=== PATIENT | female | born 1990 | race Caucasian/White ===

== ENCOUNTER → 2016-10-09 | Outpatient (REF) | payer BC, OTHER | LOC: M LAB REF 16:57 | PROVIDERS: ATTEND Obstetrics & Gynecology | DX: Z34.03 Encounter for supervision of normal first pregnancy, third trimester (principal) ==

== ENCOUNTER 2016-11-01 06:37 | Inpatient (IN) | payer BC, OTHER ==
[~2016-11-01] VITALS: Ht 162.6 cm; Wt 69.0 kg
[2016-11-01] VITALS (9 sets, daily range): BP systolic 115–144; BP diastolic 59–94
[2016-11-01] MEDS ORDERED: LACTATED RINGER'S 1000 ML IV STA (07:52)
[2016-11-01] MEDS ORDERED: ONETAB35 PO (07:57)
[2016-11-01] MEDS ORDERED: PROMETHAZINE INJ 25 MG/ML VIAL (J2550) IV PRN (08:00)
[2016-11-01] MEDS ORDERED: BUTORPHANOL 2 MG/ML INJ (J0595) IV PRN (08:00)
--- NOTE | 2016-11-01 08:16 | HPE ---
DATE OF ADMISSION: 11/01/2016 26-year-old 1, estimated date of delivery 11/06/2016 presents at 39 weeks 2 days with reports of uterine contractions since of 0300 followed by spontaneous rupture of membranes, clear fluid at 0548. Reports active movement. Last normal menstrual period 01/31/2016 for JU of 11/06/2016. Declined first trimester sonogram. Anatomy scan within normal limits, confirmed the date of 10/24/2016. Appropriate care. No known drug allergies. Medical-surgical noncontributory. Family is noncontributory. SOCIAL HISTORY: . Father of the baby present and supportive. Denies tobacco, alcohol or drugs. OBJECTIVE: Prepregnancy weight 115, total weight gain 38 pounds. A+, antibody negative, rubella immune, VDRL, Hep B, Hep C, HIV, gonorrhea and Chlamydia all negative. Declined genetic screening. 1-hour glucose 134. 3-hour was normal 82, 115, 122 and 88. Group B strep is negative. Vital signs are stable. Heart rate is regular. She is breathing with contractions, uncomfortable but coping well. heart 135, moderate variability with accelerations. Uterine contractions 3 minutes apart times 60 seconds, moderate clear fluid draining per vagina. Sterile vaginal exam 6 cm, 100% and 0 station, cephalic. ASSESSMENT: Primipara at term, active labor, category 1 tracing. PLAN: Admit. Patient plans to labor ad jr. Anticipate normal spontaneous vaginal .
[2016-11-01 08:53] LABS: MEAN CORPUSCULAR HEMOGLOBIN 30.6 pg (27.0-33.0); MEAN CORPUSCULAR HGB CONC 33.5 g/dl (32.0-36.5); MEAN CORPUSCULAR VOLUME 91.4 fl (80.0-96.0); RED CELL DISTRIBUTION WIDTH 12.6 % (11.5-14.5); WHITE BLOOD COUNT 13.1 K/mm3 (4.0-10.0)
[2016-11-01] MEDS ORDERED: FENTANYL 2MCG/ML ROPIVACAINE 0.2% NACL 250 ML CADD As Ordered ONE (13:34)
[2016-11-01] MEDS ORDERED: LR 1,000 ML IV SCH (14:45)
[2016-11-01] MEDS ORDERED: OXYTOCIN DRIP 30 UNITS in APPROPRIATE DILUENT 1 EA IV SCH (14:45)
[2016-11-01] MEDS ORDERED: EPIDURAL/PCA KEYS XX PRN (15:00)
[2016-11-01] MEDS ORDERED: diphenhydrAMINE INJ 50MG/ML VIAL (J1200) IV PRN (15:00)
[2016-11-01] MEDS ORDERED: FENTANYL/ROPIVACAINE/NACL CADD 250 ML EPIDURAL SCH (15:00)
[2016-11-01] MEDS ORDERED: LACTATED RINGER'S 1000 ML IV PRN (15:00)
[2016-11-01] MEDS ORDERED: REFRIGERATOR IV KEYS XX PRN (15:00)
[2016-11-01] MEDS ORDERED: ONDANSETRON 4MG/2ML VIAL (J2405) IV PRN (15:00)
[2016-11-01] MEDS ORDERED: EPIDURAL COMMENT XX SCH (15:00)
[2016-11-01] MEDS ORDERED: ePHEDrine SULFATE 25 MG/5 ML(5MG/ML) SYRINGE IV PRN (15:00)
[2016-11-01] MEDS ORDERED: NALOXONE INJ 0.4 MG/1 ML VIAL (J2310) IV PRN (15:00)
[2016-11-01] MEDS ORDERED: ACETAMINOPHEN 500 MG TAB As Ordered ONE (21:02)
[2016-11-01] MEDS: ACETAMINOPHEN 500 MG TAB PO PRN (21:04)
[2016-11-01] MEDS ORDERED: AMPICILLIN SOD/SULBACTAM SOD 3 GM in D5W MINI-BAG PLUS 100 ML IV SCH (22:30)
[2016-11-02] VITALS (8 sets, daily range): BP systolic 96–130; BP diastolic 51–79
[2016-11-02 02:01] LABS: CORD GAS ABE A -19.6; CORD GAS HCO3 A 13.4 MEQ/L; CORD GAS O2 SAT A 32.7 %; CORD GAS PCO2 A 61.8 mmHg; CORD GAS PH A 6.955 UNITS; CORD GAS PO2 A 22.9 mmHg; CORD GAS SBC A 9.8 MEQ/L; CORD GAS TCO2 A 15.3 MEQ/L
[2016-11-02 02:05] LABS: CORD GAS ABE V -17.8; CORD GAS HCO3 V 14.7 MEQ/L; CORD GAS O2 SAT V 33.5 %; CORD GAS PCO2 V 62.5 mmHg; CORD GAS PH V 6.989 UNITS; CORD GAS PO2 V 21.7 mmHg; CORD GAS SBC V 10.7 MEQ/L; CORD GAS TCO2 V 16.6 MEQ/L
[2016-11-02] MEDS ORDERED: DIBUCAINE 1% OINTMENT 30GM TOP PRN (02:15)
[2016-11-02] MEDS ORDERED: METHYLERGONOVINE MALEATE 0.2 MG TAB PO PRN (02:15)
[2016-11-02] MEDS ORDERED: RHOGAM 300 MCG (1500 IU) INJ (J2790) IM SCH (02:15)
[2016-11-02] MEDS ORDERED: MOM 30ML SUSPENSION UDC PO PRN (02:15)
[2016-11-02] MEDS ORDERED: ANUSOL HC CREAM 30GM TOP PRN (02:15)
[2016-11-02] MEDS ORDERED: MEASLES,MUMPS,RUBELLA VACCINE INJ (MMR-II) (90707) SC SCH (02:15)
[2016-11-02] MEDS: AMPICILLIN SOD/SULBACTAM SOD 3 GM in D5W MINI-BAG PLUS 100 ML IV SCH ×4 (04:45→22:35)
[2016-11-02] MEDS: IBUPROFEN 800 MG TAB PO PRN ×2 (04:45→16:49)
[2016-11-02] MEDS: ACETAMINOPHEN 500 MG TAB PO PRN (06:17)
[2016-11-02] MEDS: PERCOCET 5MG/325MG TAB PO PRN ×3 (06:36→22:36)
[2016-11-02] MEDS: DOCUSATE SODIUM 100 MG CAP PO SCH ×2 (09:00→22:36)
[2016-11-02] MEDS: PRENATAL VITAMIN TAB PO SCH (09:00)
[2016-11-03] MEDS: IBUPROFEN 800 MG TAB PO PRN (02:13)
[2016-11-03] MEDS: AMPICILLIN SOD/SULBACTAM SOD 3 GM in D5W MINI-BAG PLUS 100 ML IV SCH (04:23)
[2016-11-03 05:32] VITALS: BP 121/61
[2016-11-03] MEDS: DOCUSATE SODIUM 100 MG CAP PO SCH (07:58)
[2016-11-03] MEDS: PRENATAL VITAMIN TAB PO SCH (07:58)
[2016-11-03] MEDS ORDERED: IBUP80TA PO (11:15)
[2016-11-03] MEDS ORDERED: PERCOCET PO (11:15)
[2016-11-03] MEDS ORDERED: COLA100C PO (12:46)
[2016-11-03] MEDS ORDERED: ACET50TA PO (12:46)
--- NOTE | 2016-11-04 07:50 | DSES ---
DATE OF ADMISSION: 11/01/2016 DATE OF DISCHARGE: 11/03/2016 26-year-old 1, now para 1, estimated date of delivery 11/06/2016 admitted 11/01/2016 in labor after spontaneous rupture of membranes, clear fluid 0538. Progressed slowly utilizing epidural for pain management with Pitocin augmentation. Received Unasyn 3 grams IV for 24 hours for maternal temperature. After 3 hours second stage, Dr. Kelly in to evaluate for assisted vaginal delivery. Low forceps applied with viable male delivered 11/02/2016 at 0153, 8 pounds 1 ounce. Second-degree perineal laceration repaired by Dr. Kelly. Vital signs are stable 97.6, 121/61. Adequate pain management with oral medications. Breasts are soft. The patient is pumping. Fundus firm, nontender. Lochia rubra is light without odor. Perineum is well approximated without edema and legs are negative. ASSESSMENT: day #1 post forceps delivery okay for discharge. DISCHARGE/PLAN Routine care and precautions. Pelvic rest for 6 weeks. Continue her vitamins, Motrin and Percocet. Prescription sent. Return to the office in 6 weeks and call as needed.
== END 2016-11-03 13:00 | disposition home or self-care (01) | DRG 560 ==
LOC: M LDO 06:37 → M LDI 07:59 → M OBS 11-02 07:52
PROVIDERS: ADMIT Obstetrics & Gynecology; ATTEND Obstetrics & Gynecology
PROC: 10D07Z3 Extraction of Products of Conception, Low Forceps, Via Natural or Artificial Opening (ICD-10-PCS; principal; 2016-11-02)
PROC: 0KQM0ZZ Repair Perineum Muscle, Open Approach (ICD-10-PCS; 2016-11-02)
PROC: 0HQ9XZZ Repair Perineum Skin, External Approach (ICD-10-PCS; 2016-11-02)
DX: O76 Abnormality in fetal heart rate and rhythm complicating labor and delivery (principal); O41.1230 Chorioamnionitis, third trimester, not applicable or unspecified; Z3A.39 39 weeks gestation of pregnancy; O70.1 Second degree perineal laceration during delivery; O75.81 Maternal exhaustion complicating labor and delivery; O77.0 Labor and delivery complicated by meconium in amniotic fluid; O70.0 First degree perineal laceration during delivery; Z37.0 Single live birth

== ENCOUNTER → 2018-09-01 | Outpatient (REF) | payer OTHER ==
[2018-09-01 19:05] LABS: HEMATOCRIT 40.1 % (36.0-47.0); HEMOGLOBIN 13.6 g/dl (12.0-15.5); MEAN CORPUSCULAR HEMOGLOBIN 31.2 pg (27.0-33.0); MEAN CORPUSCULAR HGB CONC 33.9 g/dl (32.0-36.5); PLATELET COUNT, AUTOMATED 270 10^3/uL (150-450); RED BLOOD COUNT 4.36 10^6/uL (4.00-5.40); RED CELL DISTRIBUTION WIDTH 12.3 % (11.5-14.5); WHITE BLOOD COUNT 11.2 10^3/uL (4.0-10.0)
[2018-09-01 20:18] LABS: HCG, SERUM QUANTITATIVE 107722 MIU/ML
[2018-09-02 09:32] LABS: RUBELLA IgG QUALITATIVE IMMUNE (IMMUNE)
[2018-09-02 09:33] LABS: HBsAg Prenatal NEGATIVE (NEGATIVE)
[2018-09-02 10:00] LABS: HEPATITIS C VIRUS ABY INDEX 0.1 INDEX (<0.8)
[2018-09-02 10:01] LABS: HIV 1&2 SCREEN CENTAUR NEGATIVE (NEGATIVE)
== END ==
LOC: M LAB REF 16:36
DX: O36.80X0 Pregnancy with inconclusive fetal viability, not applicable or unspecified (principal)

== ENCOUNTER → 2021-09-26 | Outpatient (REF) | payer OTHER ==
[~2021-09-26] MED LIST: COLA100C5 PO; IBUP80TA PO; MAPA500T2 PO; ONETAB35 PO; PERCOCET PO
== END ==
LOC: M LAB REF 17:06
PROVIDERS: ATTEND Physician Assistant
DX: R30.0 Dysuria (principal)

== ENCOUNTER → 2021-09-27 | Outpatient (CLI) | payer OTHER ==
[2021-09-27 10:31] LABS: BASO % 0.3 % (0.0-1.0); EOS # 0.1 10^3/uL (0.0-0.5); EOS % 1.1 % (0.0-3.0); HEMATOCRIT 40.8 % (36.0-47.0); HEMOGLOBIN 13.2 g/dl (12.0-15.5); LYMPH # 2.3 10^3/uL (1.5-5.0); MEAN CORPUSCULAR HEMOGLOBIN 30.3 pg (27.0-33.0); MEAN CORPUSCULAR HGB CONC 32.4 g/dl (32.0-36.5); MEAN CORPUSCULAR VOLUME 93.6 fl (80.0-96.0); MONO # 0.4 10^3/uL (0.0-0.8); MONO % 5.4 % (2.0-8.0); NEUTROPHILS # 5.1 10^3/uL (1.5-8.5); NEUTROPHILS % 63.8 % (36.0-66.0); PLATELET COUNT, AUTOMATED 285 10^3/uL (150-450); RED BLOOD COUNT 4.36 10^6/uL (4.00-5.40)
[2021-09-27 11:05] LABS: ALBUMIN 3.8 GM/DL (3.2-5.2); ALT/SGPT 21 U/L (12-78); BILIRUBIN,TOTAL 0.4 MG/DL (0.2-1.0); BLOOD UREA NITROGEN 14 MG/DL (7-18); CALCIUM LEVEL 8.6 MG/DL (8.5-10.1); CARBON DIOXIDE LEVEL 29 MEQ/L (21-32); CHLORIDE LEVEL 104 MEQ/L (98-107); CHOLESTEROL LEVEL 172 MG/DL (<200); CHOLESTEROL RISK RATIO 2.866 (<5); FREE T4 0.97 NG/DL (0.76-1.46); GLOMERULAR FILTRATION RATE > 60.0 (>60); GLUCOSE, FASTING 78 MG/DL (70-100); HDL CHOLESTEROL 60 MG/DL (>40); LDL CHOLESTEROL 102 MG/DL (<100); NON-HDL-C 112 MG/DL; POTASSIUM SERUM 4.3 MEQ/L (3.5-5.1); SODIUM LEVEL 139 MEQ/L (136-145); THYROID STIMULATING HORMONE 0.848 uIU/ML (0.358-3.740); TOTAL PROTEIN 6.8 GM/DL (6.4-8.2); TRIGLYCERIDES LEVEL 51 MG/DL (<150)
[2021-09-27 11:06] LABS: TOTAL 25(OH) VITAMIN D 14.2 NG/ML (30.0-100.0)
== END ==
LOC: M WUC 07:58
PROVIDERS: ATTEND Physician Assistant
DX: Z13.220 Encounter for screening for lipoid disorders (principal); Z13.29 Encounter for screening for other suspected endocrine disorder

== ENCOUNTER → 2022-10-23 | Outpatient (REF) | payer BC, OTHER | LOC: M LAB REF 17:17 | PROVIDERS: ATTEND Family Medicine | DX: R30.0 Dysuria (principal) ==

== ENCOUNTER → 2023-01-17 | Outpatient (CLI) | payer BC, OTHER ==
[2023-01-17 11:27] LABS: PROGESTERONE 2.43 NG/ML
[2023-01-18 17:08] LABS: SEX HORMONE BINDING GLOBULIN 51.4 nmol/L (24.6-122.0); TESTOSTERONE FREE (DIRECT) 0.8 pg/mL (0.0-4.2)
== END ==
LOC: M WUC 08:03
PROVIDERS: ATTEND Obstetrics & Gynecology
DX: F52.0 Hypoactive sexual desire disorder (principal)

== ENCOUNTER → 2024-07-07 | Outpatient (REF) | payer OTHER ==
[2024-07-08 13:04] LABS: GC DNA AMPLIFICATION NEGATIVE (NEGATIVE)
== END ==
LOC: M LAB REF 10:25
PROVIDERS: ATTEND Physician Assistant
DX: N76.0 Acute vaginitis (principal)

== ENCOUNTER → 2025-09-05 | Outpatient (REF) | payer BC | LOC: M LAB REF 16:58 | PROVIDERS: ATTEND Family Medicine | DX: N39.0 Urinary tract infection, site not specified (principal) ==